=== PATIENT | female | born 1980 | race Caucasian/White ===

== ENCOUNTER 2016-10-02 01:46 | Inpatient (IN) | payer OTHER ==
[2016-10-02] MEDS ORDERED: OBEPIDURAL* 250 ML ONE (11:29)
[2016-10-02 12:02] LABS: Hematocrit 41 % (35-47); Hemoglobin 13.7 g/dl (12.0-16.0); Mean Corpuscular HGB Conc 34 g/dl (31-36); Mean Corpuscular Hemoglobin 31 pg (27-31); Mean Corpuscular Volume 91 fL (80-97); Mean Platelet Volume 12 um3 (7.4-10.4); Red Blood Count 4.47 10^6/ul (4.0-5.4); Red Cell Distribution Width 13 % (10.5-15); White Blood Count 14.3 10^3/ul (3.5-10.8)
[2016-10-02 12:05] LABS: Add Diff/Slide Review? Slide Review Added; Comments Flag Yes
[2016-10-02] MEDS ORDERED: Phenylephrine IV* 40 MCG/ML 10 ML SYRINGE IV PUSH PRN ×2 (17:03)
[2016-10-02] MEDS ORDERED: EPHEDrine (Pressors)* 50 MG/ML VIAL IV PUSH PRN ×2 (17:03)
[2016-10-02] MEDS ORDERED: OBEPIDURAL* 250 ML EPIDURAL SCH (18:00)
[2016-10-02] MEDS ORDERED: Mineral Oil Sterile, TOPICAL* 25 ML BTL ONE (21:53)
[2016-10-02] MEDS ORDERED: Oxytocin in LR* 20 UNITS/1,000 ML BAG IVPB ONE (22:23)
[2016-10-02] MEDS ORDERED: Lidocaine 1% MPF wEPI 200,000* 30 ML SDV ONE (22:48)
[2016-10-02] MEDS ORDERED: Dibucaine 1% 28.35 GM TUBE PR PRN (23:34)
[2016-10-02] MEDS ORDERED: oxyCODONE/Acetamin 5/325 MG* TAB PO PRN (23:34)
[2016-10-02] MEDS ORDERED: Witch Hazel PAD* JAR TOPICAL PRN (23:34)
[2016-10-02] MEDS ORDERED: Acetaminophen TAB* 325 MG PO PRN (23:34)
[2016-10-02] MEDS ORDERED: Oxytocin in LR* 20 UNITS/1,000 ML BAG IVPB SCH (23:45)
[2016-10-03] MEDS: Ibuprofen TAB* 600 MG PO PRN ×4 (00:30→20:08)
[2016-10-03 07:15] LABS: Hematocrit 37 % (35-47); Hemoglobin 12.3 g/dl (12.0-16.0); Mean Corpuscular HGB Conc 33 g/dl (31-36); Mean Corpuscular Hemoglobin 30 pg (27-31); Mean Corpuscular Volume 91 fL (80-97); Mean Platelet Volume 12 um3 (7.4-10.4); Red Blood Count 4.07 10^6/ul (4.0-5.4); Red Cell Distribution Width 13 % (10.5-15); White Blood Count 19.6 10^3/ul (3.5-10.8)
[2016-10-03 07:20] LABS: Comments Flag Yes
[2016-10-03 07:21] LABS: Add Diff/Slide Review? Slide Review Added
[2016-10-03] MEDS ORDERED: Ferrous Gluconate TAB* 324 MG TAB PO SCH (09:00)
[2016-10-03] MEDS: Docusate CAP* 100 MG PO SCH ×2 (09:12→20:10)
[2016-10-03] MEDS: Simethicone CHEW TAB* 80 MG PO SCH ×4 (09:12→20:10)
--- NOTE | 2016-10-03 17:03 | PTEDU ---
Patient Name: ALPHONSO VERMA AMBARALPHONSO BYRNES selected video: BBOB: Bonding Through Massage to view on 10/03/2016 at 5:02:25 PM from [id number]
[2016-10-04] MEDS: Ibuprofen TAB* 600 MG PO PRN ×3 (04:07→21:26)
[2016-10-04] MEDS: Simethicone CHEW TAB* 80 MG PO SCH ×2 (08:53→21:26)
[2016-10-04] MEDS: Docusate CAP* 100 MG PO SCH ×3 (09:57→21:26)
--- NOTE | 2016-10-04 16:39 | PTEDU ---
Patient Name: ALPHONSO VERMA AMBARALPHONSO BYRNES selected video: Never Ever Shake a Baby to view on 10/04/2016 at 4:38:47 PM from [facility] [id number]
--- NOTE | 2016-10-04 17:01 | PTEDU ---
Patient Name: ALPHONSO VERMA ALPHONSO VERMA selected video: Follow Me Mum: The [place] to Successful to view on 017 at 5:00:39 PM [id number]
[2016-10-05 08:20] VITALS: BP 117/73
[2016-10-05] MEDS: Ibuprofen TAB* 600 MG PO PRN (08:24)
[2016-10-05] MEDS: Docusate CAP* 100 MG PO SCH (08:40)
[2016-10-05] MEDS: Simethicone CHEW TAB* 80 MG PO SCH (08:40)
== END 2016-10-05 12:54 | disposition home or self-care (01) | DRG 775 ==
LOC: MCHOBOUT 01:46 → MCHOB 02:12
PROVIDERS: ADMIT Midwife; ATTEND Obstetrics & Gynecology
PROC: 10E0XZZ Delivery of Products of Conception, External Approach (ICD-10-PCS; principal; 2016-10-02)
PROC: 10907ZC Drainage of Amniotic Fluid, Therapeutic from Products of Conception, Via Natural or Artificial Opening (ICD-10-PCS; 2016-10-02)
PROC: 0W8NXZZ Division of Female Perineum, External Approach (ICD-10-PCS; 2016-10-02)
DX: O48.0 Post-term pregnancy (principal); O77.0 Labor and delivery complicated by meconium in amniotic fluid; O66.0 Obstructed labor due to shoulder dystocia; Z3A.41 41 weeks gestation of pregnancy; Z37.0 Single live birth
CPT/HCPCS: 36415; 85025; 85060; 86850; 86900; 86901; A9270-GY; J2001

== ENCOUNTER 2017-07-15 10:30 | Emergency (ER) | payer OTHER ==
[2017-07-15 10:38] VITALS: BP 97/57
[2017-07-15] MEDS ORDERED: Ibuprofen TAB* 600 MG PO ONE (10:53)
--- NOTE | 2017-07-15 10:53 | UC ---
Respiratory Complaint HPI - HPI Summary HPI Summary: Day 2 of URI sx fever this morning---laryngitis, headache---recent pneumonia rx with Doxy - History of Current Complaint Chief Complaint: UCRespiratory Stated Complaint: URI Time Seen by Provider: 07/15/17 10:43 Hx Obtained From: Patient Hx Last Menstrual Period: 07/08/17 ?: No Onset/Duration: Sudden Onset, Lasting Days - 2, Still Present Timing: Constant Severity Initially: Moderate Severity Currently: Moderate Character: Cough: Nonproductive Aggravating Factors: Nothing Alleviating Factors: Nothing Associated Signs And Symptoms: Positive: Pleuritic Chest Pain, URI, Hoarseness - Allergies/Home Medications Allergies/Adverse Reactions: Allergies Allergy/AdvReac Type Severity Reaction Status Date / Time No Known Allergies Allergy Verified 08/15/16 21:30 PMH/Surg Hx/FS Hx/Imm Hx Previously Healthy: Yes - Surgical History Surgical History: None - Family History Known Family History: Negative: Hypertension - Social History Occupation: Employed Full-time Lives: With Family Alcohol Use: None Substance Use Type: None Smoking Status (MU): Former Smoker - Immunization History Most Recent Influenza Vaccination: 07/2016 Most Recent Pneumonia Vaccination: never Review of Systems Constitutional: Chills Skin: Negative Eyes: Negative ENT: Sore Throat Respiratory: Negative Cardiovascular: Negative Gastrointestinal: Diarrhea, Nausea Genitourinary: Negative Motor: Negative Neurovascular: Negative Musculoskeletal: Negative Neurological: Headache Psychological: Negative Is Patient Immunocompromised?: No All Other Systems Reviewed And Are Negative: Yes Physical Exam Triage Information Reviewed: Yes Appearance: No Pain Distress, Ill-Appearing - mild, Thin Vital Signs: Initial Vital Signs Temp 98.3 F 07/15/17 10:34 Pulse 100 07/15/17 10:34 Resp 16 07/15/17 10:34 BP 97/57 07/15/17 10:34 Pulse Ox 100 07/15/17 10:34 Vital Signs Reviewed: Yes Eye Exam: Normal Eyes: Positive: Conjunctiva Clear ENT Exam: Normal ENT: Positive: Normal ENT inspection, Hearing grossly normal, Pharynx normal, Nasal congestion, Hoarse voice, Uvula midline. Negative: TMs normal, TM bulging , Tonsillar swelling, Tonsillar exudate, Trismus, Muffled voice, Dental tenderness, Sinus tenderness Dental Exam: Normal Neck exam: Normal Neck: Positive: Supple, Nontender, No Lymphadenopathy Respiratory Exam: Normal Respiratory: Positive: Chest non-tender, Lungs clear, Normal breath sounds, No respiratory distress, No accessory muscle use Cardiovascular Exam: Normal Cardiovascular: Positive: RRR, No Murmur, Pulses Normal, Brisk Capillary Refill Musculoskeletal Exam: Normal Musculoskeletal: Positive: Strength Intact, ROM Intact, No Edema Neurological Exam: Normal Neurological: Positive: Alert, Muscle Tone Normal Psychological Exam: Normal Skin Exam: Normal UC Diagnostic Evaluation - Laboratory O2 Sat by Pulse Oximetry: 100 - Radiology Xray Interpretation: No Acute Changes Radiology Interpretation Completed By: ED Physician, Radiologist Respiratory Course/Dx - Course Course Of Treatment: rest increase fluids, otc medications for symptom relief follow with pcp prn - Differential Dx/Diagnosis Provider Diagnoses: Viral URI Discharge - Discharge Plan Condition: Stable Disposition: HOME Patient Education Materials: Viral Syndrome (ED), Cold Symptoms (ED) Referrals: Neftali Maldonado MD [Primary Care Provider] - If Needed
[2017-07-15] MEDS ORDERED: Ibuprofen TAB* 200 MG PO ONE (10:59)
--- NOTE | 2017-07-15 11:26 | RAD ---
HISTORY: Follow-up pneumonia COMPARISONS: May 06, 2017 VIEWS: 4: Frontal dual-energy and lateral views of the chest. FINDINGS: CARDIOMEDIASTINAL SILHOUETTE: The cardiomediastinal silhouette is normal. SELENA: The selena are normal. PLEURA: The costophrenic angles are sharp. No pleural abnormalities are noted. LUNG PARENCHYMA: The lungs are clear. There has been interval resolution of the consolidation of the right middle lobe. ABDOMEN: The upper abdomen is clear. There is no subphrenic gas. BONES AND SOFT TISSUES: No bone or soft tissue abnormalities are noted. OTHER: None. IMPRESSION: NO ACTIVE CARDIOPULMONARY DISEASE.
== END 2017-07-15 11:44 | disposition home or self-care (01) ==
LOC: UCEAST 10:30
DX: J06.9 Acute upper respiratory infection, unspecified (principal); Z87.891 Personal history of nicotine dependence
CPT/HCPCS: 71046; 87502; 99211; A9270-GY; G0463

== ENCOUNTER 2018-12-12 10:21 | Emergency (ER) | payer OTHER ==
[2018-12-12] MEDS ORDERED: NS 0.9% 1000 ML** 1,000 ML IV ONE (10:46)
--- NOTE | 2018-12-12 10:47 | ED ---
- HPI Summary HPI Summary: The patient is a 38 y/o F presenting to [facility] with a chief complaint of two episodes of vaginal bleeding this morning. She states that when she went to have a BM, there was a small amount of brownish-red blood with wiping. She then had another BM before coming to the ED, there was another episode of bleeding, but the blood was more red-tinged than previous. There were no blood blots or tissue noted. She is concerned because she is currently 9 weeks . She has not yet had an ultrasound, but she was scheduled for the ultrasound with her DIRECTOR [facility] on 12/15/2018. She states She additionally c/o abdominal cramping in the bilateral suprapubic regions, and a sensation of a 'deflated' stomach. She denies nausea, vomiting, diarrhea, and back pain. The pain is currently rated 3/ 10 in severity. LNMP: 10/12/2018. A1. Hx of right hydronephrosis. Former smoker, no EtOH, no substance use. - History of Current Complaint Chief Complaint: EDOBProblems Stated Complaint: POSSIBLE 9 WEEKS PREG POSSIBLE MISCARRIGE PER PT Time Seen by Provider: 12/12/18 10:34 Hx Obtained From: Patient Chief Complaint: Pain, Vaginal Bleeding Onset/Duration: Started Hours Ago, Still Present Timing: Lasting Hours Severity: Moderate Current Severity: Moderate Pain Intensity: 3 Location of Pain: Suprapubic Character: Cramping Aggravating Factors: Nothing Alleviating Factors: Nothing Associated Signs and Symptoms: Positive: Vaginal Bleeding or Discharge - bleeding small amount (similar to spotting) with one episode of brownish-red and then more red in second episode, Other: - POSITIVE: sensation of 'deflated' stomach; NEGATIVE: vomiting, diarrhea. Negative: Back Pain, Nausea - Assessment Hx Now: Yes - 9 weeks SAB: 0 IEA: 1 Vaginal Bleeding Amount: Spotting Hx Last Menstrual Period: 10/12/18 - Additional Pertinent History Maternal Blood Type and Rh: O Positive - Allergies/Home Medications Allergies/Adverse Reactions: Allergies Allergy/AdvReac Type Severity Reaction Status Date / Time No Known Allergies Allergy Verified 12/12/18 10:31 Home Medications: Home Medications 95/Iron Fum/Folic/Dha [ Multivitamin + D] 1 mis PO DAILY [History Confirmed 12/12/18] PMH/Surg Hx/FS Hx/Imm Hx Endocrine/Hematology History: Denies: Hx Diabetes Cardiovascular History: Denies: Hx Hypercholesterolemia, Hx Hypertension History: Reports: Other Problems/Disorders - right hydronephrosis - Surgical History Surgical History: None Surgery Procedure, Year, and Place: none Infectious Disease History: No Infectious Disease History: Denies: Hx Clostridium Difficile, Hx Hepatitis, Hx Human Immunodeficiency Virus (HIV), Hx of Known/Suspected MRSA, Hx Shingles, Hx Tuberculosis, Hx Known/ Suspected VRE, Hx Known/Suspected VRSA, History Other Infectious Disease, Traveled Outside the [place] in Last 30 Days - Family History Known Family History: Negative: Hypertension - Social History Alcohol Use: None Hx Substance Use: No Substance Use Type: Reports: None Hx Tobacco Use: No Smoking Status (MU): Former Smoker Do You Chew or Dip Tobacco: No Have You Chewed or Dipped Tobacco in the LAST YEAR: No Have You Smoked in the Last Year: No Review of Systems Positive: Abdominal Pain - cramping bilateral suprapubic, Other - sensation of ' deflated stomach'. Negative: Vomiting, Diarrhea, Nausea Positive: other - vaginal bleeding without blood clots Positive: Other - NEGATIVE: back pain All Other Systems Reviewed And Are Negative: Yes Physical Exam - Summary Physical Exam Summary: VITAL SIGNS: Reviewed. GENERAL: Patient is a well-developed and nourished female who is lying comfortable in the stretcher. Patient is not in any acute respiratory distress. HEAD AND FACE: No signs of trauma. No ecchymosis, hematomas or skull depressions. No sinus tenderness. EYES: PERRLA, EOMI x 2, No injected conjunctiva, no nystagmus. EARS: Hearing grossly intact. Ear canals and tympanic membranes are within normal limits. MOUTH: Oropharynx within normal limits. NECK: Supple, trachea is midline, no adenopathy, no JVD, no carotid bruit, no c- spine tenderness, neck with full ROM. CHEST: Symmetric, no tenderness at palpation LUNGS: Clear to auscultation bilaterally. No wheezing or crackles. CVS: Regular rate and rhythm, S1 and S2 present, no murmurs or gallops appreciated. ABDOMEN: Soft, non-tender. No signs of distention. No rebound no guarding, and no masses palpated. Bowel sounds are normal. EXTREMITIES: FROM in all major joints, no edema, no cyanosis or clubbing. NEURO: Alert and oriented x 3. No acute neurological deficits. Speech is normal and follows commands. SKIN: Dry and warm. - Physical Exam Triage Information Reviewed: Yes Vital Signs Reviewed: Yes Diagnostics - Vital Signs Vital Signs Temp Pulse Resp BP Pulse Ox 12/12/18 10:27 97.7 F 93 18 115/74 98 - Laboratory Result Diagrams: 12/12/18 10:59 12/12/18 10:59 Lab Statement: Any lab studies that have been ordered have been reviewed, and results considered in the medical decision making process. Re-Evaluation - Re-Evaluation First Eval Re-Evaluation Time: 12:00 Comment: I discussed lab findings with the patient and next steps for workup. Second Eval Re-Evaluation Time: 12:30 Comment: I discussed discharge with the patient. Course/Dx - Course Assessment/Plan: The patient is a 38 y/o F presenting to [facility] with a chief complaint of two episodes of vaginal bleeding this morning. She states that when she went to have a BM, there was a small amount of brownish-red blood with wiping. She then had another BM before coming to the ED, there was another episode of bleeding, but the blood was more red-tinged than previous. There were no blood blots or tissue noted. She is concerned because she is currently 9 weeks . She has not yet had an ultrasound, but she was scheduled for the ultrasound with her DIRECTOR [facility] on 12/15/2018. She states She additionally c/o abdominal cramping in the bilateral suprapubic regions, and a sensation of a ' deflated' stomach. She denies nausea, vomiting, diarrhea, and back pain. The pain is currently rated 3/10 in severity. LNMP: 10/12/2018. A1. Hx of right hydronephrosis. Former smoker, no EtOH, no substance use. Blood work without any significant normality except for glucose of 12. The patients beta- hCG is negative. Therefore, the patient is not . She reports that she thought she was because she had a test and it was positive; however she has not had any blood work or seen the primary care physician or OB/ PARKING ASSISTANT doctor yet. Therefore, I believe that the patient has her menstrual cycle therefore the patient was discharged home with follow-up with PCP. The patient declined a pelvic exam. I discussed all the findings and test results with the patient. Patient was instructed to return to the emergency room immediately if any of the symptoms return or worsens. Plan of care was discussed with the patient and understands and agrees. All questions were answered at patient satisfaction. There were no further complaints or concerns. Lung exam before discharge: CTA B/L. Good air exchange. No wheezing or crackles heard. CVS: S1 and S2 present. No murmurs appreciated. Patient is alert and oriented x 3. Patient is hemodynamically stable. Patient will be discharged home with follow up PCP in the next 2-3 days. - Diagnoses Provider Diagnoses: Menstrual cramp, Delayed menses Discharge - Sign-Out/Discharge Documenting (check all that apply): Patient Departure - Patient will be discharged home. Patient Received Moderate/Deep Sedation with Procedure: No - Discharge Plan Condition: Stable Disposition: HOME Patient Education Materials: Kenzie (ED) Referrals: Deepika Reilly NURSING ADMIN [Primary Care Provider] - 3 Days Additional Instructions: Follow up with your primary care provider in 2-3 days. RETURN TO THE EMERGENCY DEPARTMENT FOR ANY NEW OR WORSENING SYMPTOMS. - Billing Disposition and Condition Condition: STABLE Disposition: Home - Attestation Statements Document Initiated by Ahmet: Yes Documenting Scribe: Gloria Jara Provider For Whom Ahmet is Documenting (Include Credential): Dr. Jameel Hampton MD Scribe Attestation: Gloria Nguyen scribed for Dr. Jameel Hampton MD on 12/12/18 at 1802. Scribe Documentation Reviewed: Yes Provider Attestation: The documentation as recorded by the Gloria brown accurately reflects the service I personally performed and the decisions made by me, Dr. Jameel Hampton MD Status of Scrberenice Document: Viewed
[2018-12-12 11:12] LABS: ABS Eosinophils 0.1 10^3/ul (0-0.6); ABS Lymphocytes 1.2 10^3/ul (1.0-4.8); ABS Monocytes 0.2 10^3/ul (0-0.8); ABS Neutrophils 2.5 10^3/ul (1.5-7.7); Eosinophil % 1.3 %; Hematocrit 42 % (35-47); Mean Corpuscular HGB Conc 33 g/dL (31-36); Mean Corpuscular Hemoglobin 29 pg (27-31); Mean Corpuscular Volume 87 fL (80-97); Mean Platelet Volume 9.1 fL (7.4-10.4); Nucleated Red Blood Cells % 0.1; Platelet Count 159 10^3/uL (150-450); Red Blood Count 4.86 10^6 /uL (3.70-4.87); Red Cell Distribution Width 13 % (10-15)
[2018-12-12 11:23] LABS: ALT 8 U/L (7-52); AST 13 U/L (13-39); Albumin 4.1 g/dL (3.2-5.2); Albumin/Globulin Ratio 1.3 (1-3); Alkaline Phosphatase 47 U/L (34-104); Anion Gap 4 mmol/L (2-11); BUN/Creatinine Ratio 21.8 (8-20); Blood Urea Nitrogen 17 mg/dL (6-24); CO2 Carbon Dioxide 29 mmol/L (22-32); Calcium 9.1 mg/dL (8.6-10.3); Chloride 106 mmol/L (101-111); EGFR Non-African American 82.7 (>60); Globulin 3.2 g/dL (2-4); Glucose 102 mg/dL (70-100); Potassium 3.9 mmol/L (3.5-5.0); Sodium 139 mmol/L (135-145); Total Protein 7.3 g/dL (6.4-8.9)
[2018-12-12 11:30] LABS: HCG Pregnancy < 0.60 mIU/mL
[2018-12-12 13:09] VITALS: BP 112/70
== END 2018-12-12 13:07 | disposition home or self-care (01) ==
LOC: ED 10:21
DX: N94.4 Primary dysmenorrhea (principal); N91.0 Primary amenorrhea; Z32.02 Encounter for pregnancy test, result negative; Z87.891 Personal history of nicotine dependence
CPT/HCPCS: 36415; 80053; 83605; 84702; 85025; 86850; 86900; 86901; 96360; 96361; 99282

== ENCOUNTER 2019-06-05 15:49 | Emergency (ER) | payer OTHER ==
[2019-06-05 16:09] VITALS: BP 101/64
--- NOTE | 2019-06-05 16:50 | UC ---
Complaint Female HPI - HPI Summary HPI Summary: 39-year-old female presents with onset of dysuria and urgency earlier today. States she is a long-term monogamous relationship with a male partner however they have not had sexual intercourse for some time therefore she has little concern for any STIs. Denies fever, chills, abdominal pain, back or flank pain, frequency, nausea, vomiting, hematuria, vaginal discharge, or vaginal itching. - History Of Current Complaint Chief Complaint: UCGU Stated Complaint: PERSONAL ISSUE Time Seen by Provider: 06/05/19 16:25 Hx Obtained From: Patient Hx Last Menstrual Period: three - four months Pain Intensity: 3 - Allergies/Home Medications Allergies/Adverse Reactions: Allergies Allergy/AdvReac Type Severity Reaction Status Date / Time No Known Allergies Allergy Verified 06/05/19 16:06 Home Medications: Home Medications Norethindr/Eth Estradiol(Nf) [Lo Loestrin Fe (NF)] 1 tab PO DAILY 06/05/19 [ History Confirmed 06/05/19] PMH/Surg Hx/FS Hx/Imm Hx Previously Healthy: Yes - Surgical History Surgical History: None Surgery Procedure, Year, and Place: none - Family History Known Family History: Positive: Non-Contributory - Social History Occupation: Employed Full-time Lives: With Family Alcohol Use: Weekly Substance Use Type: None Smoking Status (MU): Former Smoker Have You Smoked in the Last Year: No - Immunization History Most Recent Influenza Vaccination: 07/2016 Most Recent Pneumonia Vaccination: never Review of Systems All Other Systems Reviewed And Are Negative: Yes Constitutional: Negative: Fever, Chills Respiratory: Positive: Negative Cardiovascular: Positive: Negative Gastrointestinal: Negative: Abdominal Pain, Vomiting, Nausea Genitourinary: Positive: Dysuria, Urgency. Negative: Hematuria, Frequency, Vaginal/Penile Itching, Vaginal/Penile Discharge, Ulceration/Lesion, Abnormal Bleeding Musculoskeletal: Positive: Negative Neurological: Positive: Negative Is Patient Immunocompromised?: No Physical Exam - Summary Physical Exam Summary: GENERAL APPEARANCE: Well developed, well nourished, alert and cooperative, and appears to be in no acute distress. CARDIAC: Normal S1 and S2. No S3, S4 or murmurs. Rhythm is regular. There is no peripheral edema, cyanosis or pallor. Extremities are warm and well perfused. Capillary refill is less than 2 seconds. Peripheral pulses intact. LUNGS: Clear to auscultation without rales, rhonchi, wheezing or diminished breath sounds. ABDOMEN: Positive bowel sounds. Soft, nondistended, nontender. No guarding or rebound. No masses or hepatosplenomegally. No CVA tenderness. MUSKULOSKELETAL: ROM intact to all extremities. No joint erythema or tenderness. Normal muscular development. Normal gait. SKIN: Skin normal color, texture and turgor with no lesions or eruptions. Triage Information Reviewed: Yes Vital Signs: Initial Vital Signs Temp 99.8 F 06/05/19 16:03 Pulse 72 06/05/19 16:03 Resp 18 06/05/19 16:03 BP 101/64 06/05/19 16:03 Pulse Ox 99 06/05/19 16:03 Vital Signs Reviewed: Yes Complaint Female Dx - Course Course Of Treatment: 39-year-old female presents with onset of dysuria and urgency earlier today. States she is a long-term monogamous relationship with a male partner however they have not had sexual intercourse for some time therefore she has little concern for any STIs. Denies fever, chills, abdominal pain, back or flank pain, frequency, nausea, vomiting, hematuria, vaginal discharge, or vaginal itching. Afebrile. Vital signs stable. Patient's exam was overall unremarkable. [id number] urinalysis showed some trace lysed blood but was otherwise within normal limits. A urine culture is pending. Reviewed results with the patient and we discussed that with the recent onset of symptoms that it is possible that she has a early UTI that we are not seeing evidenced by the urinalysis or that there may be another cause for her symptoms. We discussed the risks and benefits of empiric treatment for a UTI versus waiting for results of the urine culture prior to starting treatment and the patient is electing to treat him empirically at this time as she is getting ready to go out of town to [facility] for a couple of days. She is to start Bactrim DS 1 tablet twice daily for 5 days pending the culture results. I also provided her with a prescription for Pyridium 100 mg 3 times a day 2 days to help with the discomfort. She is to follow-up with her primary care provider in 3 days if symptoms have not resolved. Anticipatory guidance and warning symptoms were reviewed with the patient. Verbalizes understanding and agrees with plan of care. - Differential Dx/Diagnosis Differential Diagnosis/HQI/PQRI: Pelvic Inflammatory Disease, Sexually Transmitted Disease, Urinary Tract Infection, Other - Vulvovaginitis Provider Diagnosis: Dysuria Discharge ED - Sign-Out/Discharge Documenting (check all that apply): Patient Departure All imaging exams completed and their final reports reviewed: No Studies - Discharge Plan Condition: Stable Disposition: HOME Patient Education Materials: Dysuria (ED) Referrals: Deepika Reilly NP [Primary Care Provider] - 3 Days (If symptoms persist.) Additional Instructions: Your urine test in the clinic today did not show evidence of a urinary tract infection however based on your symptoms you have elected to start an antibiotic to treat for a possible infection. We will send a urine culture today to see if any bacteria grow out and make sure the antibiotic you were prescribed is appropriate to treat the infection. It will take 48-72 hours to get these results. We will contact you if there is any change in your treatment plan. Start Bactrim DS 1 tab twice a day for 5 days. Take Pyridium 1 tablet every 8 hours for next 2 days to help with the discomfort. This medication will turn your urine an orange color. Drink plenty of fluids. To help prevent urinary tract infections: 1) Be sure to wipe from front to back. 2) Urinate immediately after any sexual intercourse. 3) Avoid taking bubble baths. Follow up with your primary care provider in 3-5 days if symptoms persist. Seek immediate medical attention in the emergency room if you develop fever greater than 100.5 F, have severe abdominal pain, persistent vomiting, or any worsening of symptoms. - Billing Disposition and Condition Condition: STABLE Disposition: Home
== END 2019-06-05 16:56 | disposition home or self-care (01) ==
LOC: UCEAST 15:49
DX: R30.0 Dysuria (principal); R39.15 Urgency of urination; Z87.891 Personal history of nicotine dependence
CPT/HCPCS: 81003; 87086; 99202; G0463

== ENCOUNTER 2019-08-26 17:03 | Emergency (ER) | payer OTHER ==
--- NOTE | 2019-08-26 17:06 | UC ---
UC General HPI - HPI Summary HPI Summary: 39 yo c/o pain in mid upper chest x approx 2 days has felt congested but no sob, no cough no rash no gi issues no c/o palpitations no gu issues no recent travel, works in an office - History of Current Complaint Stated Complaint: CHEST CONGESTION Time Seen by Provider: 08/26/19 17:06 Hx Obtained From: Patient Hx Last Menstrual Period: three - four months - Allergy/Home Medications Allergies/Adverse Reactions: Allergies Allergy/AdvReac Type Severity Reaction Status Date / Time No Known Allergies Allergy Verified 08/26/19 17:18 Home Medications: Home Medications Norethindr/Eth Estradiol(Nf) [Lo Loestrin Fe (NF)] 1 tab PO DAILY 06/05/19 [ History Confirmed 08/26/19] Ascorbic Acid TAB* [Vitamin C TAB*] 500 mg PO DAILY 08/26/19 [History Confirmed 08/26/19] Zicam 2 spray INH Q4H 08/26/19 [History Confirmed 08/26/19] guaiFENesin ER TAB [Mucinex*] 600 mg PO BID 08/26/19 [History Confirmed 08/26/19 ] PMH/Surg Hx/FS Hx/Imm Hx Previously Healthy: Yes - Surgical History Surgical History: None Surgery Procedure, Year, and Place: none - Family History Known Family History: Positive: Non-Contributory Negative: Hypertension - Social History Alcohol Use: Weekly Substance Use Type: None Smoking Status (MU): Former Smoker Have You Smoked in the Last Year: No - Immunization History Most Recent Influenza Vaccination: 07/2016 Most Recent Pneumonia Vaccination: never Review of Systems All Other Systems Reviewed And Are Negative: Yes Constitutional: Positive: Other - see hpi Skin: Positive: Negative Eyes: Positive: Negative ENT: Positive: Negative Respiratory: Positive: Other - see hpi Cardiovascular: Positive: Other Gastrointestinal: Positive: Negative Genitourinary: Positive: Negative Motor: Positive: Negative Neurovascular: Positive: Negative Musculoskeletal: Positive: Negative Neurological/Mental Status: Positive: Negative Physical Exam Triage Information Reviewed: Yes Appearance: Well-Nourished - able to sit up, converses in full sentances looks tired but nad Eye Exam: Normal ENT Exam: Normal Neck exam: Normal Neck: Positive: Supple, Nontender, No Lymphadenopathy Respiratory Exam: Other - BS full, clear No wheezing noted Respiratory: Positive: Lungs clear, Normal breath sounds, No respiratory distress, No accessory muscle use Cardiovascular Exam: Other - HR regular, with several extra beats noted, correlates with radial pulse Diast M 1-08/[address] Cardiovascular: Positive: Pulses Normal, Brisk Capillary Refill Abdominal Exam: Normal Abdomen Description: Positive: Nontender Musculoskeletal Exam: Normal - gait steady Musculoskeletal: Positive: Strength Intact Neurological Exam: Normal - grossly nonfocal Psychological Exam: Normal - nad Skin Exam: Normal - no visible or reported rash nondiaphoretic Course/Dx - Course Course Of Treatment: EKG 64bpm QTC 422 PR139 ? nsivcd no old ekg in [facility] Still c/o chest pain pressure. During exam, I detected multiple extra beats, hr correlates with R radial pulse Also + diastolic murmur Left upper sternal border apprx -08/04. D/w Ms. Agarwal coa / tx plan. Recommend ED evaluation / tx. She carefully considered this and agrees to go to the ED. Declines EMS, wishes to drive. I called ED, spoke with Frederic Godinez NP. - Diagnoses Provider Diagnosis: Chest pain Discharge ED - Sign-Out/Discharge Documenting (check all that apply): Patient Departure All imaging exams completed and their final reports reviewed: No Studies - Discharge Plan Condition: Stable Disposition: HOME-RECOMMEND TO ED Patient Education Materials: Chest Pain (ED) Referrals: Deepika Reilly NP [Nurse Practitioner] - Additional Instructions: Please go to the Emergency Department. Stop and call 911 if problems en route. - Billing Disposition and Condition Condition: STABLE Disposition: Home-Recommend to ED
[2019-08-26 17:18] VITALS: BP 128/69
[2019-08-26] MEDS ORDERED: Aspirin 81 mg CHEW TAB* 81 MG TAB.CHEW PO ONE (17:40)
== END 2019-08-26 17:50 | disposition home health service (06) ==
LOC: UCEAST 17:03
DX: R07.9 Chest pain, unspecified (principal); Z87.891 Personal history of nicotine dependence
CPT/HCPCS: 93005; 99212; A9270-GY; G0463

== ENCOUNTER 2019-08-26 18:04 | Emergency (ER) | payer OTHER ==
[2019-08-26 20:56] LABS: ABS Eosinophils 0.1 10^3/ul (0-0.6); ABS Lymphocytes 1.2 10^3/ul (1.0-4.8); ABS Monocytes 0.3 10^3/ul (0-0.8); ABS Neutrophils 2.8 10^3/ul (1.5-7.7); Eosinophil % 1.9 %; Hematocrit 40 % (35-47); Hemoglobin 13.6 g/dL (12.0-16.0); Lymphocyte % 26.9 %; Mean Corpuscular HGB Conc 34 g/dL (31-36); Mean Corpuscular Hemoglobin 30 pg (27-31); Mean Corpuscular Volume 86 fL (80-97); Mean Platelet Volume 8.7 fL (7.4-10.4); Nucleated Red Blood Cells % 0.1; Platelet Count 174 10^3/uL (150-450); Red Blood Count 4.63 10^6 /uL (3.70-4.87); Red Cell Distribution Width 14 % (10-15); White Blood Count 4.5 10^3/uL (3.5-10.8)
[2019-08-26 21:06] LABS: INR 1.05 (0.82-1.09)
[2019-08-26 21:14] LABS: Albumin 4.5 g/dL (3.2-5.2); Albumin/Globulin Ratio 1.4 (1-3); BUN/Creatinine Ratio 16.3 (8-20); Calcium 9.4 mg/dL (8.6-10.3); EGFR African American 96.6 (>60); EGFR Non-African American 79.9 (>60); Globulin 3.2 g/dL (2-4); Potassium 4.1 mmol/L (3.5-5.0); Total Bilirubin 0.4 mg/dL (0.2-1.0); Total Protein 7.7 g/dL (6.4-8.9)
--- NOTE | 2019-08-26 21:45 | ED ---
HPI Chest Pain - HPI Summary HPI Summary: 39-year-old female presents to emergency department today complaining of chest pressure which began approximately 3 days ago. Patient dorsa's associated nasal congestion, lightheadedness, fatigue, shortness of breath. Patient denies recent fevers, long distance travel, surgery, immobilization. Patient denies past medical history of blood clots or family history of blood clots. Patient does take oral contraceptive pill. Patient denies recent recreational drug use or alcohol use. Patient otherwise feels well and denies rash, pain with urination, nausea, vomiting, diarrhea. Surgical history and family history is noncontributory. - History of Current Complaint Chief Complaint: EDChestPainROMI Time Seen by Provider: 08/26/19 21:13 Hx Obtained From: Patient Hx Last Menstrual Period: three - four months Onset/Duration: Started Days Ago Timing: Constant Initial Severity: Mild Current Severity: Mild Pain Intensity: 0 Pain Scale Used: 0-10 Numeric Chest Pain Location: Diffuse Chest Pain Radiates: No Character: Pressure/Squeezing Aggravating Factor(s): Nothing Alleviating Factor(s): Nothing Associated Signs and Symptoms: Positive: Chest Pain, Anxiety, Recent Stress, Shortness of Breath, Cough, Sinus Discomfrot - Allergy/Home Medications Allergies/Adverse Reactions: Allergies Allergy/AdvReac Type Severity Reaction Status Date / Time No Known Allergies Allergy Verified 08/26/19 18:18 Home Medications: Home Medications Norethindr/Eth Estradiol(Nf) [Lo Loestrin Fe (NF)] 1 tab PO DAILY 06/05/19 [ History Confirmed 08/26/19] Ascorbic Acid TAB* [Vitamin C TAB*] 500 mg PO DAILY 08/26/19 [History Confirmed 08/26/19] Zicam 2 spray INH Q4H 08/26/19 [History Confirmed 08/26/19] guaiFENesin ER TAB [Mucinex*] 600 mg PO BID 08/26/19 [History Confirmed 08/26/19 ] PMH/Surg Hx/FS Hx/Imm Hx Endocrine/Hematology History: Denies: Hx Diabetes Cardiovascular History: Denies: Hx Hypercholesterolemia, Hx Hypertension History: Reports: Other Problems/Disorders - right hydronephrosis - Surgical History Surgery Procedure, Year, and Place: none Infectious Disease History: No Infectious Disease History: Denies: Hx Clostridium Difficile, Hx Hepatitis, Hx Human Immunodeficiency Virus (HIV), Hx of Known/Suspected MRSA, Hx Shingles, Hx Tuberculosis, Hx Known/ Suspected VRE, Hx Known/Suspected VRSA, History Other Infectious Disease, Traveled Outside the [place] in Last 30 Days - Family History Known Family History: Positive: Non-Contributory Negative: Hypertension - Social History Alcohol Use: Weekly Alcohol Amount: 1 serving x 2-3 times a week Hx Substance Use: No Substance Use Type: Reports: None Hx Tobacco Use: No Smoking Status (MU): Former Smoker Have You Smoked in the Last Year: No Review of Systems Constitutional: Negative Eyes: Negative ENT: Negative Positive: Chest Pain Positive: Shortness Of Breath, Cough Gastrointestinal: Negative Genitourinary: Negative Musculoskeletal: Negative Skin: Negative Neurological/Mental Status: Negative Psychological: Normal All Other Systems Reviewed And Are Negative: Yes Physical Exam - Summary Physical Exam Summary: Patient is in no acute distress. Lungs are clear to auscultation. There is a noted diastolic murmur with auscultation. Triage Information Reviewed: Yes Vital Signs On Initial Exam: Initial Vitals Temp Pulse Resp BP Pulse Ox 97.8 F 80 18 125/71 100 08/26/19 18:08 08/26/19 18:08 08/26/19 18:08 08/26/19 18:08 08/26/19 18:08 Vital Signs Reviewed: Yes Appearance: Positive: Well-Appearing, No Pain Distress, Well-Nourished Skin: Positive: Warm, Skin Color Reflects Adequate Perfusion Eyes: Positive: EOMI, ELIZABET ENT: Positive: Hearing grossly normal Respiratory/Lung Sounds: Positive: Clear to Auscultation, Breath Sounds Present Cardiovascular: Positive: RRR, S1, S2 Abdomen Description: Positive: Nontender, Soft Bowel Sounds: Positive: Present Musculoskeletal: Positive: Strength/ROM Intact Neurological: Positive: Sensory/Motor Intact, Alert, Oriented to Person Place, Time, Normal Gait, Facial Symmetry, Speech Normal Psychiatric: Positive: Normal, Affect/Mood Appropriate AVPU Assessment: Alert Procedures - Sedation Patient Received Moderate/Deep Sedation with Procedure: No Diagnostics - Vital Signs Vital Signs Temp Pulse Resp BP Pulse Ox 08/26/19 20:20 98.0 F 70 18 112/73 08/26/19 18:08 97.8 F 80 18 125/71 100 - Laboratory Lab Results: Lab Results 0208/26/19 08/26/19 Range/Units 20:49 20:49 20:49 WBC 4.5 (3.5-10.8) 10^3/uL RBC 4.63 (3.70-4.87) 10^6 /uL Hgb 13.6 (12.0-16.0) g/dL Hct 40 (35-47) % MCV 86 (80-97) fL MCH 30 (27-31) pg MCHC 34 (31-36) g/dL RDW 14 (10-15) % Plt Count 174 (150-450) 10^3/uL MPV 8.7 (7.4-10.4) fL Neut % (Auto) 63.7 % Lymph % (Auto) 26.9 % Moore % (Auto) 7.0 % Eos % (Auto) 1.9 % Baso % (Auto) 0.5 % Absolute Neuts (auto) 2.8 (1.5-7.7) 10^3/ul Absolute Lymphs (auto) 1.2 (1.0-4.8) 10^3/ul Absolute Monos (auto) 0.3 (0-0.8) 10^3/ul Absolute Eos (auto) 0.1 (0-0.6) 10^3/ul Absolute Basos (auto) 0.0 (0-0.2) 10^3/ul Absolute Nucleated RBC 0.0 10^3/ul Nucleated RBC % 0.1 INR (Anticoag Therapy) 1.05 (0.82-1.09) D-Dimer, Quantitative Pending Sodium 137 (135-145) mmol/L Potassium 4.1 (3.5-5.0) mmol/L Chloride 102 (101-111) mmol/L Carbon Dioxide 29 (22-32) mmol/L Anion Gap 6 (2-11) mmol/L BUN 13 (6-24) mg/dL Creatinine 0.80 (0.51-0.95) mg/dL Est GFR ( Amer) 96.6 (>60) Est GFR (Non-Af Amer) 79.9 (>60) BUN/Creatinine Ratio 16.3 (8-20) Glucose 90 (70-100) mg/dL Calcium 9.4 (8.6-10.3) mg/dL Total Bilirubin 0.40 (0.2-1.0) mg/dL AST 15 (13-39) U/L ALT 8 (7-52) U/L Alkaline Phosphatase 39 (34-104) U/L Troponin I 0.00 (<0.03) ng/mL Total Protein 7.7 (6.4-8.9) g/dL Albumin 4.5 (3.2-5.2) g/dL Globulin 3.2 (2-4) g/dL Albumin/Globulin Ratio 1.4 (1-3) Result Diagrams: 08/26/19 20:49 08/26/19 20:49 Lab Statement: Any lab studies that have been ordered have been reviewed, and results considered in the medical decision making process. Chest Pain Course/Dx - Course Course Of Treatment: Patient was evaluated in the emergency department today for chest pain. Vitals noted. EKG was done promptly which shows no evidence of STEMI. Normal sinus rhythm at a rate of 78 bpm. There are occasional PVCs. Normal AR and QT interval. Normal axis. There are no priors available for comparison. Laboratory studies returned showing no significant abnormalities with no leukocytosis, anemia, electrolyte disturbance. D-dimer negative for pulmonary embolus. Initial troponin 0.00. Serial troponins are deemed unnecessary as patient has been symptomatic for days. HEART score: 2. Chest x- ray negative for pneumonia. Patient likely suffering from viral upper rest for infection. Patient discharged with outpatient follow-up with cardiology for her symptoms today as well as a newly discovered diastolic murmur. - Chest Pain Differential Diagnosis/HQI/PQRI: Acute ME, ACS, Angina, Lower Respiratory Infection, Pulmonary Embolism - Diagnoses Provider Diagnoses: Chest pain Discharge ED - Sign-Out/Discharge Documenting (check all that apply): Patient Departure - Discharge Plan Condition: Stable Disposition: HOME Patient Education Materials: Chest Pain (ED) Referrals: Neftali Maldonado MD [Primary Care Provider] - 3 Days Tootie Flores MD [Medical Doctor] - 5 Days Additional Instructions: you were seen in the emergency department today due to chest pain. Laboratory work was done as well as an x-ray which showed no evidence of acute process requiring intervention at this time. Although there was a negative workup today I am uncertain what is causing your chest pain and cardiac origin cannot be ruled out. Please follow-up with your primary care provider for cardiology for further evaluation and management. Please also follow up with cardiology for further evaluation of a murmur noted during your stay. Please return to the emergency department immediately if you develop any new or worsening symptoms. - Billing Disposition and Condition Condition: STABLE Disposition: Home
[2019-08-26 22:31] VITALS: BP 116/73
== END 2019-08-26 22:30 | disposition home or self-care (01) ==
LOC: ED 18:04
DX: R07.89 Other chest pain (principal); R09.81 Nasal congestion; R42 Dizziness and giddiness; R53.83 Other fatigue; R06.02 Shortness of breath; Z79.3 Long term (current) use of hormonal contraceptives; Z87.891 Personal history of nicotine dependence
CPT/HCPCS: 36415; 71046; 80053; 84484; 85025; 85379; 85610; 93005; 99282